=== PATIENT | female | born 1960 | race Caucasian/White ===

== ENCOUNTER 2020-04-24 20:57 | Observation (INO) | payer MEDICARE ==
[~2020-04-24] VITALS: Ht 157.5 cm; Wt 56.4 kg
[2020-04-24] MEDS ORDERED: SODIUM CHLORIDE FLUSH 10ML SYR IVF ONE (21:00)
--- NOTE | 2020-04-24 21:00 | NUR ---
PER PT SHE WAS AT THE GYM AND FELL OFF AN EXERCISE MACHINE, SHE DROVE HERSELF HERE, BUT THEN WAS UNABLE TO GET HERSELF OUT OF THE CAR. A CODE 250 WAS CALLED ON THIS PT IN THE ER CANOPY. PT REPORTS PAIN TO HEAD, RIBS, AND LEFT HIP. PT HAVING DIFFICULTY FINDING WORDS AND FINISHING SENTENCES. PT ON AQUATIC INSTRUCTOR AND PULSE OX. EKG DONE. IV INSERTED AND BLOOD SENT TO LAB.
--- NOTE | 2020-04-24 21:59 | NUR ---
REPORT GIVEN TO ELIZABETH KAMINSKI.
[2020-04-24 22:13] LABS: BASOPHILS # (AUTO) 0.05 x10^3/uL (0-0.1); BASOPHILS % (AUTO) 0 % (0-1); EOSINOPHILS # (AUTO) 0.14 x10^3/uL (0-0.4); EOSINOPHILS % (AUTO) 1 % (1-7); LYMPHOCYTES # (AUTO) 2.75 x10^3/uL (1-3.4); LYMPHOCYTES % (AUTO) 22 % (22-44); MD NO; MEAN CORPUSCULAR HEMOGLOBIN 29.1 pg (27.0-34.8); MEAN CORPUSCULAR HGB CONC 33.5 g/dL (32.4-35.8); MEAN PLATELET VOLUME 8.3 fL (7.4-10.4); MONOCYTES % (AUTO) 7 % (2-9); NEUTROPHILS % (AUTO) 70 % (42-75); PLATELET COUNT 330 x10^3/uL (130-400); RED BLOOD COUNT 5.06 x10^6/uL (3.82-5.3); RED CELL DISTRIBUTION WIDTH 15.2 % (9.6-15.2)
[2020-04-24 22:22] LABS: ALANINE AMINOTRANSFERASE 33 U/L (12-78); ALBUMIN 3.6 g/dL (3.4-5.0); ANION GAP 8 mmol/L (5-15); CALCIUM 8.8 mg/dL (8.5-10.1); CHLORIDE 110 mmol/L (98-107); CREATININE 0.98 mg/dL (0.55-1.02)
[2020-04-24 22:23] LABS: INTERNATIONAL NORMALIZED RATIO 0.99 (0.93-1.1); PROTHROMBIN TIME 10.2 Seconds (9.6-11.5)
[2020-04-24 22:25] LABS: ALKALINE PHOSPHATASE 102 U/L (45-117); BILIRUBIN,TOTAL 0.5 mg/dL (0.2-1.0); TOTAL PROTEIN 7.3 g/dL (6.4-8.2)
[2020-04-24] MEDS ORDERED: MORPHINE SULFATE 4 MG/ML, 1ML IVPush ONE ×2 (22:30→23:30)
[2020-04-24] MEDS ORDERED: ONDANSETRON 2MG/ML, 2ML IVPush ONE (22:30)
[2020-04-24] MEDS ORDERED: ONDANSETRON 2MG/ML, 2ML ONE (22:35)
[2020-04-24] MEDS ORDERED: MORPHINE SULFATE 4 MG/ML, 1ML ONE ×2 (22:35→23:27)
[2020-04-24] MEDS ORDERED: TIZANIDINE (23:33)
[2020-04-24] MEDS ORDERED: SYNTHYROID (23:33)
--- NOTE | 2020-04-24 23:38 | NUR ---
PT STATES NOT RELIEF OF PAIN WITH FIRST DOSE OF MORPHINE. ER MD ROWLAND NOTIFIED AND HE WANTS ANOTHER 4MG OF MORPHINE. PT MEDICATED PER EMAR AND ADMITTING PRODUCT MARKETING INTERN AT BEDSIDE FOR ASSESSMENT AT THIS TIME.
[2020-04-25] MEDS ORDERED: ENALAPRILAT 1.25 MG/ML, 2ML IVPush PRN (00:30)
[2020-04-25] MEDS ORDERED: LIDODERM 5% PATCH TD PRN (00:30)
[2020-04-25] MEDS ORDERED: ACETAMINOPHEN 325 MG TABLET PO PRN (00:30)
[2020-04-25] MEDS ORDERED: CYCLOBENZAPRINE 10 MG TABLET PO PRN (00:30)
[2020-04-25] MEDS ORDERED: MELATONIN 5 MG TABLET PO PRN (00:30)
[2020-04-25] MEDS ORDERED: ONDANSETRON 2MG/ML, 2ML IVPush PRN (00:30)
[2020-04-25] MEDS ORDERED: DOCUSATE 100 MG CAPSULE PO PRN (00:30)
--- NOTE | 2020-04-25 00:45 | NUR ---
REPORT TO ELIZABETH PEÑALOZA
[2020-04-25] MEDS: KETOROLAC 30 MG/1 ML IV PRN ×3 (01:24→21:10)
[2020-04-25 01:34] VITALS: BP 130/84
[2020-04-25 02:10] VITALS: BP 130/84
[2020-04-25] MEDS ORDERED: POTASSIUM CHLORIDE 20 MEQ TAB.ER.PRT PO ONE (08:00)
[2020-04-25 08:04] VITALS: BP 105/72
[2020-04-25] MEDS: HYDROcodone/APAP 5/325 TABLET PO PRN ×2 (09:08→17:13)
[2020-04-25 13:45] VITALS: BP 120/77
[2020-04-25] MEDS ORDERED: AMIT10TA PO (17:24)
[2020-04-25] MEDS ORDERED: MELO7.5T31 PO (17:26)
[2020-04-25] MEDS ORDERED: MULT-658 PO (17:28)
[2020-04-25 18:42] VITALS: BP 118/68
[2020-04-26 00:43] VITALS: BP 138/87
[2020-04-26] MEDS: KETOROLAC 30 MG/1 ML IV PRN (06:33)
[2020-04-26 07:18] VITALS: BP 124/84
[2020-04-26] MEDS: HYDROcodone/APAP 5/325 TABLET PO PRN ×2 (07:24→11:48)
[2020-04-26] MEDS ORDERED: CELE-47 PO (08:39)
[2020-04-26] MEDS ORDERED: HYDR-3237 PO (08:39)
== END 2020-04-26 12:58 | disposition home or self-care (01) ==
LOC: EDBD 20:57 → ED 22:53 → EDIP 23:00 → INTOOBSV 23:00 → 3N 04-25 01:05 → DCLOUNGE 04-26 12:50
PROVIDERS: ADMIT Family Medicine; ATTEND Family Medicine
DX: F07.81 Postconcussional syndrome (principal); I10 Essential (primary) hypertension; E03.9 Hypothyroidism, unspecified; M48.00 Spinal stenosis, site unspecified; M54.5 Low back pain; G89.29 Other chronic pain; E87.6 Hypokalemia; Z87.442 Personal history of urinary calculi
CPT/HCPCS: 36415; 70450; 71250; 73502; 80053; 85025; 85610; 93005; 96374; 96375; 96376; 97162; 97165; 97750; 99285; G0378; J1885; J2270; J2405